=== PATIENT | male | born 1985 | race Caucasian/White ===

== ENCOUNTER 2022-08-03 12:21 | Emergency (ER) | payer MEDICAID ==
[~2022-08-03] VITALS: Ht 167.6 cm; Wt 77.1 kg
[2022-08-03] MEDS ORDERED: ONDANSETRON HCL/PF 4 MG/2 ML VIAL IVP ONE (12:30)
[2022-08-03] MEDS ORDERED: IV NS 0.9% 1,000 ML BAG IV ONE (12:30)
[2022-08-03] MEDS ORDERED: ONDANSETRON HCL/PF 4 MG/2 ML VIAL ONE (12:38)
--- NOTE | 2022-08-03 12:53 | NUR ---
Patient came in to the er c/o rectal pain x 1 month. On room air, breathing evenly and unlabored. Kept comfortable, will continue to monitor accordingly.
--- NOTE | 2022-08-03 12:58 | NUR ---
urine collected and sent to lab.
[2022-08-03 13:08] LABS: BASOPHILS % (AUTO) 0.5 % (0.0-2.0); EOSINOPHILS % (AUTO) 0.4 % (0.0-6.0); HEMATOCRIT 47 % (39-51); HEMOGLOBIN 16.1 g/dL (13.5-17.5); LYMPHOCYTES # (AUTO) 1.2 K/uL (0.8-4.8); LYMPHOCYTES % (AUTO) 16.7 % (20.0-44.0); MEAN CORPUSCULAR HGB CONC 34 g/dl (31.0-36.0); MEAN CORPUSCULAR VOLUME 88 fL (80-96); MONOCYTES # (AUTO) 0.4 K/uL (0.1-1.30); MONOCYTES % (AUTO) 5.7 % (2.0-12.0); NEUTROPHILS # (AUTO) 5.7 K/uL (1.8-8.9); NEUTROPHILS % (AUTO) 76.7 % (43.0-81.0); PLATELET COUNT (AUTO) 299 K/uL (150-450); RED BLOOD CELL COUNT(AUTO) 5.34 MIL/uL (4.5-6.0); WHITE BLOOD COUNT (AUTO) 7.4 K/uL (4.3-11.0)
[2022-08-03 13:26] LABS: BILIRUBIN,URINE 1+ (NEGATIVE); COLOR,URINE YELLOW (YELLOW); LEUKOCYTE ESTERASE ,URINE NEGATIVE (NEGATIVE); NITRITE, URINE NEGATIVE (NEGATIVE); PROTEIN,URINE NEGATIVE (NEGATIVE); UGLUCOSE NEGATIVE (NEGATIVE); UROBILINOGEN,URINE 0.2 EU/dL (0.2)
[2022-08-03 13:29] LABS: ALBUMIN 4.5 g/dL (3.4-5.0); BILIRUBIN,DIRECT 0.3 mg/dL (0.0-0.2); BILIRUBIN,TOTAL 1.3 mg/dL (0.2-1.0); CALCIUM, SERUM 9.2 mg/dL (8.5-10.1); CREATININE 0.9 mg/dL (0.6-1.3); POTASSIUM 3.8 mmol/L (3.5-5.1)
[2022-08-03 13:31] LABS: BACTERIA,URINE None seen /HPF (None Seen); SQUAMOUS EPITHELIAL CELL,UR Few /HPF (None Seen); WBC,URINE 0-2 /HPF (0-3)
[2022-08-03 14:48] LABS: OCCULT BLOOD STOOL NEGATIVE (NEGATIVE)
[2022-08-03] MEDS ORDERED: SIME125C81 PO (16:08)
[2022-08-03] MEDS ORDERED: FAMO-131 PO (16:08)
[2022-08-03] MEDS ORDERED: POLY17PO4 PO (16:08)
--- NOTE | 2022-08-03 16:21 | NUR ---
Patient discharged to home in stable condition. Written and verbal after care instructions given. Patient verbalizes understanding of instruction.IV removed. Catheter intact and site benign. Pressure and 4x4 applied to site. No bleeding noted.
[2022-08-03 16:22] VITALS: BP 125/64
== END 2022-08-03 16:23 | disposition home or self-care (01) ==
LOC: ER 12:26
DX: R14.0 Abdominal distension (gaseous) (principal); K59.00 Constipation, unspecified; K62.89 Other specified diseases of anus and rectum; R10.9 Unspecified abdominal pain
CPT/HCPCS: 99284; 74178; 96360; 85025; 80048; 83690; 80076; 82272; 81001; 36415; J7030; J2405

== ENCOUNTER 2023-09-06 12:51 | Emergency (ER) | payer MEDICAID, OTHER ==
[~2023-09-06] VITALS: Ht 167.6 cm; Wt 74.8 kg
[~2023-09-06 12:51] MED LIST: FAMO-131 PO; POLY17PO4 PO; SIME125C81 PO
[2023-09-06 13:25] VITALS: BP 113/88; TEMP 98.6
[2023-09-06] MEDS ORDERED: IBUP-1955 PO (14:10)
[2023-09-06 14:16] VITALS: O2SAT 98
== END 2023-09-06 14:16 | disposition home or self-care (01) ==
LOC: ER 13:02
DX: S83.91XA Sprain of unspecified site of right knee, initial encounter (principal); X58.XXXA Exposure to other specified factors, initial encounter; Y93.89 Activity, other specified; Y92.89 Other specified places as the place of occurrence of the external cause; Y99.8 Other external cause status
CPT/HCPCS: 73564-TC